=== PATIENT | male | born 1940 | race Caucasian/White ===

== ENCOUNTER 2020-02-05 09:07 | Emergency (ER) | payer MEDICARE, OTHER ==
[2020-02-05 09:42] LABS: ABSOLUTE BASOPHILS # (AUTO) 0.1 10^3/uL (0.0-0.2); ABSOLUTE EOSINOPHILS # (AUTO) 0.1 10^3/uL (0.0-0.6); ABSOLUTE LYMPHOCYTES (AUTO) 1.9 10^3/uL (0.5-4.7); ABSOLUTE MONOCYTES (AUTO) 0.5 10^3/uL (0.1-1.4); ABSOLUTE NEUT (AUTO) 4.4 10^3/uL (1.7-8.2); BASOPHILS % (AUTO) 0.8 % (0-2); EOSINOPHILS % (AUTO) 1.4 % (0-6); HEMATOCRIT 41.2 % (37.9-51.0); HEMOGLOBIN 13.7 g/dL (13.5-17.0); LYMPHOCYTES % (AUTO) 26.8 % (13-45); MEAN CORPUSCULAR HEMOGLOBIN 28.5 pg (27.0-33.4); MEAN CORPUSCULAR HGB CONC 33.2 g/dL (32.0-36.0); MEAN CORPUSCULAR VOLUME 86 fl (80-97); MONOCYTES % (AUTO) 7.7 % (3-13); PLATELET COUNT 257 10^3/uL (150-450); RED BLOOD COUNT 4.79 10^6/uL (4.35-5.55); RED CELL DISTRIBUTION WIDTH 24.6 % (11.5-14.0); SEGMENTED NEUTROPHILS % (AUTO) 63.3 % (42-78); TOTAL CELLS COUNTED % (AUTO) 100 %
[2020-02-05 10:02] LABS: ALBUMIN 4.2 g/dL (3.5-5.0); ALKALINE PHOSPHATASE 101 U/L (38-126); ANION GAP 15 (5-19); ASPARTATE AMINO TRANSFERASE 18 U/L (17-59); BILIRUBIN,DIRECT 0.1 mg/dL (0.0-0.4); BILIRUBIN,TOTAL 0.9 mg/dL (0.2-1.3); BLOOD UREA NITROGEN 21 mg/dL (7-20); CALCIUM 9.1 mg/dL (8.4-10.2); CARBON DIOXIDE 28 mmol/L (22-30); CHLORIDE 96 mmol/L (98-107); CREATINE KINASE 43 U/L (55-170); GLUCOSE 158 mg/dL (75-110); TOTAL PROTEIN 7.8 g/dL (6.3-8.2)
[2020-02-05 10:06] LABS: ANISOCYTOSIS 3+
[2020-02-05 10:07] LABS: OVALOCYTES SLIGHT; PLATELET COMMENT ADEQUATE; POIKILOCYTOSIS SLIGHT; SCHISTOCYTES SLIGHT
[2020-02-05 10:10] LABS: POTASSIUM 2.9 mmol/L (3.6-5.0)
[2020-02-05] MEDS ORDERED: POTASSIUM CHLORIDE 20 MEQ PACKET PO ONE (10:11)
[2020-02-05 10:14] LABS: CREATINE KINASE MB 1.14 ng/mL (<4.55)
[2020-02-05 10:18] LABS: TROPONIN I 0.194 ng/mL
[2020-02-05] MEDS ORDERED: FUROSEMIDE INJ/PF 20 MG/2 ML SDV IV ONE (10:18)
--- NOTE | 2020-02-05 10:41 | RADIOLOGY REPORT (SQ) ---
EXAM DESCRIPTION: CHEST SINGLE VIEW IMAGES COMPLETED DATE/TIME: 02/05/2020 8:51 am REASON FOR STUDY: bed 17 difficulty breathing COMPARISON: 10/31/2013 EXAM PARAMETERS: NUMBER OF VIEWS: One view. TECHNIQUE: Single frontal radiographic view of the chest acquired. RADIATION DOSE: NA LIMITATIONS: None. FINDINGS: LUNGS AND PLEURA: There is a masslike opacity measuring 3.2 cm in the left mid lung, possi edward loculated fluid in the left fissure versus underlying pulmonary nodule. Small left effusion. Chasity ngs are hyperinflated. Biapical pleural and parenchymal scarring. Right lung is clear. No right ef fusion. No pneumothorax. MEDIASTINUM AND HILAR STRUCTURES: No masses. Contour normal. HEART AND VASCULAR STRUCTURES: Heart has normal size. No pulmonary vascular congestion. Postoperati ve changes in the mediastinum. . BONES: No acute findings. HARDWARE: It appears there is an LVAD device at the cardiac apex. Left infraclavicular pacemaker/AIC D with intact lead wires. OTHER: No other significant finding. IMPRESSION: Small left effusion with possible loculated fluid at the left fissure versus underlying pulmonary nodule. Hyperinflated lungs which can be seen with obstructive lung disease. TECHNICAL DOCUMENTATION: JOB ID: [id number] 2010 [employer]- All Rights Reserved Reading location - IP/workstation name: [email or web address]
--- NOTE | 2020-02-05 11:37 | ER Document Report ---
ED General - General Chief Complaint: Shortness Of Breath Stated Complaint: WEAKNESS/DIFFICULTY BREATHING Time Seen by Provider: 02/05/20 09:42 Primary Care Provider: HAILEY PEACE NP-C [Primary Care Provider] - Follow up as needed Mode of Arrival: Medic Information source: Patient TRAVEL OUTSIDE OF THE [place] IN LAST 30 DAYS: No - HPI Notes: Patient states for 2 to 3 days he has had increased shortness of breath. He states that today became bad nothing came to the hospital. He denies any fever sweats chills. No exposure to the Covid virus. He has had no pain. He has had no significant cough. His shortness of breath has been constant. Is been moderate in intensity. Is worse with exertion better with rest. Patient states he feels similar to when he has been "fluid overloaded" in the past. Patient is an LVAD patient - Related Data Allergies/Adverse Reactions: No Known Drug Allergies Allergy (Verified 06/23/13 19:47) Past Medical History - General Information source: Patient - Social History Smoking Status: Former Smoker Frequency of alcohol use: None Drug Abuse: None Family History: Reviewed & Not Pertinent, Other Patient has homicidal ideation: No - Past Medical History Cardiac Medical History: Reports: Hx Heart Attack - x2, Hx Hypercholesterolemia, Hx Hypertension Pulmonary Medical History: Denies: Hx Tuberculosis Neurological Medical History: Reports: Hx Cerebrovascular Accident Psychiatric Medical History: Denies: Hx Depression Past Surgical History: Reports: Hx Appendectomy, Hx Cardiac Catheterization - stent, Hx Coronary Stent - Immunizations Hx Diphtheria, Pertussis, Tetanus Vaccination: No Hx Pneumococcal Vaccination: 03/28/09 Review of Systems - Review of Systems Constitutional: denies: Chills, Fever Cardiovascular: denies: Chest pain, Palpitations Respiratory: Short of breath. denies: Cough -: Yes All other systems reviewed and negative Physical Exam - Vital signs Vitals: Resp 20 02/05/20 09:13 Interpretation: Normal - General General appearance: Appears well, Alert - HEENT Head: Normocephalic, Atraumatic Eyes: Normal Pupils: PERRL - Respiratory Respiratory status: No respiratory distress Chest status: Nontender Breath sounds: Decreased air movement Chest palpation: Normal - Cardiovascular Rhythm: Regular Heart sounds: Normal auscultation Murmur: No - Abdominal Inspection: Normal Distension: No distension Bowel sounds: Normal Tenderness: Nontender Organomegaly: No organomegaly - Back Back: Normal, Nontender - Extremities General upper extremity: Normal inspection, Nontender, Normal color, Normal ROM, Normal temperature General lower extremity: Nontender, Edema - 1+ bilaterally, Normal ROM, Normal temperature. No: Li's sign - Neurological Neuro grossly intact: Yes Cognition: Normal Orientation: AAOx4 Estelita Coma Scale Eye Opening: Spontaneous Liberty Coma Scale Verbal: Oriented Estelita Coma Scale Motor: Obeys Commands Liberty Coma Scale Total: 15 Speech: Normal Motor strength normal: LUE, RUE, LLE, RLE Sensory: Normal - Psychological Associated symptoms: Normal affect, Normal mood - Skin Skin Temperature: Warm Skin Moisture: Dry Skin Color: Normal Course - Re-evaluation Re-evalutation: 02/05/20 11:35 Patient is an LVAD patient. He presents with shortness of breath. He may have some mild fluid overload and was therefore treated with Lasix. Chest x-ray is relatively clear other than some left basilar opacity. However on reviewing my old records as well as discussing old records with [facility] patient has had an opacity in the left base multiple times in the past. Since he has no elevated white blood cell count, no fevers, and no cold symptoms I am not going to treat this as an infection at this time. I am going to treat it as possible asymmetric edema versus atelectasis. Patient has a stable blood pressure and heart rate here. He has nontoxic-appearing. Patient will be transferred to [facility] for further care. - Vital Signs Vital signs: Temp Pulse Resp BP Pulse Ox 98 F 13 107/93 H 93 02/05/20 09:16 02/05/20 11:01 02/05/20 11:01 02/05/20 11:01 - Laboratory Result Diagrams: 02/05/20 09:27 02/05/20 09:27 Laboratory results interpreted by me: 02/05/20 02/05/20 02/05/20 09:27 09:27 09:27 RDW 24.6 H Potassium 2.9 L* Chloride 96 L BUN 21 H Glucose 158 H Creatine Kinase 43 L NT-Pro-B Natriuret Pep 3630 H - Diagnostic Test Radiology reviewed: Image reviewed, Reports reviewed - EKG Interpretation by Me Additional EKG results interpreted by me: 02/05/20 11:35 Due to the patient's left ventricular assist device there is not significant interpretation of the EKG that can be interpreted of any clinical significance. Discharge - Discharge Clinical Impression: Hypokalemia Dyspnea Qualifiers: Dyspnea type: other forms of dyspnea Qualified Code(s): R06.09 - Other forms of dyspnea Condition: Stable Disposition: [place] Referrals: HAILEY PEACE ASSOCIATE PROFESSOR OF GEOGRAPHY-C [Primary Care Provider] - Follow up as needed
[2020-02-05 13:06] VITALS: BP 87/74
--- NOTE | 2020-02-05 17:17 | EKG REPORT ---
SEVERITY:- DEFECTIVE ECG - TECHNICALLY POOR TRACING - PLEASE REPEAT ECG! POSSIBLE ATRIAL FIBRILLATION VENTRICULAR PREMATURE COMPLEX IVCD, CONSIDER ATYPICAL RBBB : Confirmed by: Amadou Marino 05-Feb-2020 17:16:42
== END 2020-02-05 13:06 | disposition short-term general hospital (02) ==
LOC: ER 09:07
DX: E87.6 Hypokalemia (principal); R06.09 Other forms of dyspnea; R06.02 Shortness of breath; R53.1 Weakness; E78.00 Pure hypercholesterolemia, unspecified; I10 Essential (primary) hypertension; Z95.811 Presence of heart assist device; I25.2 Old myocardial infarction
CPT/HCPCS: 93005; 99285; 96374; 36415; 82553; 82550; 85025; 80053; 84484; 83880; 71045; 93010; J1940; J3490